=== PATIENT | male | born 1955 | race Caucasian/White ===

== ENCOUNTER 2016-04-22 11:00 | Day surgery (SDC) | payer OTHER ==
[2016-04-17 13:45] LABS: HEMATOCRIT 42.2 % (40.0-51.0); HEMOGLOBIN 14.8 g/dL (13.6-17.8)
--- NOTE | ~2016-04-22 | OP ---
Record Of Operation [facility] [address] [place]. [address] NAME: KUSHAL BARRETT : 59 [place] [facility] [place] [id number] AGE: 61 ADM/REG DATE : 04/22/16 MR#: [id number] REPORT SERV DATE: 04/22/16 DICTATED BY: SHAYNE DOSS III DATE: 04/22/16 REPORT STATUS : Draft TRANSCRIBED BY: MODL DATE: 04/22/16 DATE OF PROCEDURE: 04/22/2016 PREOPERATIVE DIAGNOSIS: Recurrent rotator cuff tear, left shoulder. POSTOPERATIVE DIAGNOSIS: Recurrent rotator cuff tear, left shoulder, with anterior labral tear, and subacromial bursitis. 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 PROCEDURE PERFORMED: 1. Arthroscopic excision of anterior labral tear. 2. Arthroscopic debridement of anterior labral tear. 3. Arthroscopic subacromial bursectomy. 4. Mini open repair of recurrent rotator cuff tear, left shoulder using the 5.5 Mitek suture anchor and two Versalok in a double row technique. SURGEON: Shayne Doss M.D. BACK HOE OPERATOR: Josefina Melo. ANESTHESIA: General. ANTIBIOTICS: Ancef 2 g. MEDICATIONS: Interscalene block for postoperative pain control. ESTIMATED BLOOD LOSS: 50 mL. CRYSTALLOIDS: 800 mL. POSITION: Beach chair. COMPLICATIONS: None. DRAINS: None. PROCEDURE IN DETAIL: The patient was brought to the operative room, placed on the table in supine position, and general anesthesia was induced. Ancef 2 g was administered intravenously in the preoperative holding area. A single interscalene block was administered per Anesthesia Department for postoperative pain control. The patient was positioned in beach chair type position. The left shoulder and upper extremity were entirely prepped and draped in the usual sterile fashion. A pneumonic arm abdul was utilized during the procedure. Assuring good anesthesia, a standard posterior portal was provided. The arthroscope was inserted. The shoulder was inflated with sterile normal saline by means of the arthroscopic pump. Immediately obvious, it was wearing to the glenohumeral joint, with grade 2 changes to the glenoid, there was an anterior labral tear. The biceps tendon was torn and not present. A switching stick was used to create an Record Of Operation [facility] [id number] [facility] [place]. [address] NAME: KUSHAL BARRETT RAYRAY SHEPHERD : 59 [place] [facility] [place] [place] [id number] AGE: 61 ADM/REG DATE : 04/22/16 MR#: [id number] REPORT SERV DATE: 04/22/16 DICTATED BY: SHAYNE DOSS III DATE: 04/22/16 REPORT STATUS : Draft TRANSCRIBED BY: ERICKA DATE: 04/22/16 anterior portal and a partial bursectomy was carried out. Synovial tissue was removed. Subscapularis was intact, but was thin. Undersurface of rotator cuff tendon revealed a complete tear with some retraction of the supraspinatus tendon. Hold sutures could be identified from the previous repair, this was removed with a 4.5 shaver through an anterior portal. The anterior labrum was torn and frayed, this was debrided with a 4.5 shaver as well. The posterior and inferior capsule labral structures were normal. The arthroscope was then switched to the subacromial space. A straight lateral portal was created. Thickened bursal tissue was debrided performing a subacromial bursectomy. The patient had a previous acromioplasty. At this point, the lateral portal was enlarged to about a 2 inches. The deltoid was split and an Army-Amboy was placed underneath the acromion. Torn rotator cuff complex was visualized, this was debrided with a #15 blade. The greater tuberosity was roughened up with a rongeur. Thickened bursal tissue was debrided as well with a #15 blade. The 5.5 Mitek suture anchor was placed just medial to the greater tuberosity. This was double-armed with #2 FiberWire. These were weaved to the tendon and tied, advancing the tendon down to the bone. Each end was then anchored down with a Versalok in the lateral row technique and a double row technique. Thorough irrigation was carried out. The deltoid was repaired with a running 0 Vicryl. Subcutaneous tissue was closed with 2-0 Vicryl, and skin was closed using 4-0 Monocryl. Portals were closed with Monocryl as well. Benzoin and Steri-Strips were applied, followed by Aquacel dressing, and a DonJoy sling. The patient tolerated the procedure well brought to recovery in satisfactory condition. There were no intraoperative, postoperative, or anesthetic complications. All instrument, needle, sponge, and lap counts were correct. TB/MODL Shayne Doss III, M.D. / [id number] CC: Shayne Doss III, M.D.
[~2016-04-22 11:00] MED LIST: PT DENIES HOME MEDS
== END 2016-04-22 17:21 | disposition home or self-care (01) ==
LOC: SDC 11:00
PROVIDERS: Orthopaedic Surgery
PROC: 0RNK4ZZ Release Left Shoulder Joint, Percutaneous Endoscopic Approach (ICD-10-PCS; 2016-04-22)
PROC: 0LQ24ZZ Repair Left Shoulder Tendon, Percutaneous Endoscopic Approach (ICD-10-PCS; principal; 2016-04-22 13:45)
DX: M75.122 Complete rotator cuff tear or rupture of left shoulder, not specified as traumatic (principal); S43.492A Other sprain of left shoulder joint, initial encounter; Z87.891 Personal history of nicotine dependence; Z90.89 Acquired absence of other organs; H91.90 Unspecified hearing loss, unspecified ear; Z98.890 Other specified postprocedural states
CPT/HCPCS: 85014; 85018; 93005; A9270-GY; C1713; J0690; J2250; J2270; J2405; J2710; J2795; J3010